=== PATIENT | male | born 1980 | race Two or more races ===

== ENCOUNTER 2017-07-06 16:49 | Emergency (ER) | payer OTHER ==
[2017-07-06 16:53] VITALS: BP 139/96; PULSE 76; TEMP 98.5; BMI 26.3
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
[2017-07-06] MEDS ORDERED: ACETAMINOPHEN 500 MG TABLET (FP) PO ONE (17:33)
[2017-07-06] MEDS ORDERED: ACETAMINOPHEN 325 MG TABLET (FP) ONE (17:39)
[2017-07-06] MEDS ORDERED: ERYTHROMYCIN 0.5% OPHTHALMIC OINTMENT 3.5 GM TUBE OD STA (18:03)
[2017-07-06] MEDS ORDERED: ERYTHROMYCIN 0.5% OPHTHALMIC OINTMENT 3.5 GM TUBE ONE (18:06)
== END 2017-07-06 19:39 | disposition home or self-care (01) ==
LOC: JER 16:49
DX: T26.61XA Corrosion of cornea and conjunctival sac, right eye, initial encounter (principal); T54.2X1A Toxic effect of corrosive acids and acid-like substances, accidental (unintentional), initial encounter; Y92.69 Other specified industrial and construction area as the place of occurrence of the external cause
CPT/HCPCS: 99282-25